=== PATIENT | male | born 2000 | race Two or more races ===

== ENCOUNTER 2020-01-15 21:06 | Emergency (ER) | payer SELFPAY ==
[~2020-01-15] VITALS: Ht 180.3 cm; Wt 65.8 kg
--- NOTE | 2020-01-15 21:30 | NUR ---
PT LUIS C/O DELON PEARSON. PT AAOX4. DENIES PAIN. VSS. AWAITING MD FOR ORDERS.
[2020-01-15] MEDS ORDERED: LORAZEPAM INJ 2 MG/ML VIAL ONE (21:44)
--- NOTE | 2020-01-15 21:50 | NUR ---
Patient is resting comfortably in bed. Easily aroused. VSS.
[2020-01-15] MEDS ORDERED: LORAZEPAM INJ 2 MG/ML VIAL IV ONE (22:00)
[2020-01-15] MEDS ORDERED: IV NS 0.9% 1,000 ML BAG IV ONE (22:00)
--- NOTE | 2020-01-15 23:37 | NUR ---
Patient discharged to home in stable condition. Written and verbal after care instructions given. Patient verbalizes understanding of instruction IV removed. Catheter intact and site benign. Pressure and 4x4 applied to site. No bleeding noted. Pt ambulated with steady gait. Pt picked up by girlfriend.
[2020-01-15 23:38] VITALS: BP 129/78
== END 2020-01-15 23:39 | disposition home or self-care (01) ==
LOC: ER 21:06
DX: R00.2 Palpitations (principal); T40.7X5A Adverse effect of cannabis (derivatives), initial encounter; H57.04 Mydriasis; R00.0 Tachycardia, unspecified; Z88.2 Allergy status to sulfonamides; Y92.89 Other specified places as the place of occurrence of the external cause
CPT/HCPCS: 96374; 99283; J2060; J7030